=== PATIENT | female | born 1955 | race Caucasian/White ===

== ENCOUNTER 2021-11-18 08:53 | Outpatient (REF) | payer OTHER, SELFPAY | END 2021-11-18 08:54 | disposition home or self-care (01) | LOC: HO.BBR 08:53 | PROVIDERS: Visit Provider Student in an Organized Health Care Education/Training Program | DX: Z13.89 Encounter for screening for other disorder (principal) ==

== ENCOUNTER 2021-11-21 11:08 | Outpatient (REF) | payer OTHER, SELFPAY | END 2021-11-21 11:09 | disposition home or self-care (01) | LOC: HO.BBR 11:08 | PROVIDERS: Visit Provider Student in an Organized Health Care Education/Training Program | DX: D45 Polycythemia vera (principal) | CPT/HCPCS: 85018; 99195 ==

== ENCOUNTER 2021-11-24 10:08 | Outpatient (REF) | payer OTHER, SELFPAY | END 2021-11-24 10:09 | disposition home or self-care (01) | LOC: HO.BBR 10:08 | PROVIDERS: Visit Provider Student in an Organized Health Care Education/Training Program | DX: Z13.89 Encounter for screening for other disorder (principal) ==

== ENCOUNTER 2021-11-28 09:59 | Outpatient (REF) | payer OTHER, SELFPAY ==
[2021-11-28 10:21] LABS: Hematocrit 48.8 % (37.0-47.0); Hemoglobin 16.1 g/dl (12.0-16.0)
== END 2021-11-28 10:00 | disposition home or self-care (01) ==
LOC: HO.BBR 09:59
PROVIDERS: Visit Provider Student in an Organized Health Care Education/Training Program
DX: D45 Polycythemia vera (principal)
CPT/HCPCS: 36415; 85014; 85018; 99195

== ENCOUNTER 2021-12-01 11:04 | Outpatient (REF) | payer OTHER, SELFPAY ==
[2021-12-01 11:26] LABS: Basophils Absolute Auto 0.1 X10*3/uL (0.0-0.2); Basophils Percent Auto 0.8 % (0-2); Eosinophils Absolute Auto 0.3 X10*3/uL (0.0-0.4); Eosinophils Percent Auto 3.5 % (0-4); Hematocrit 44.5 % (37.0-47.0); Hemoglobin 14.3 g/dl (12.0-16.0); Imm Gran Abs Auto 0.02 X10*3/uL (0.00-0.03); Imm Gran Pct Auto 0.3 % (0.0-0.4); Lymphocytes Absolute Auto 1.4 X10*3/uL (1.2-4.9); Lymphocytes Percent Auto 18.6 % (20-40); MANUAL DIFF FLAG SCAN; Mean Corpuscular HGB Conc 32.1 g/dl (31.0-35.0); Mean Corpuscular Hemoglobin 27.2 pg (27.0-33.0); Mean Corpuscular Volume 84.8 fL (80.0-98.0); Mean Platelet Volume 10.2 fL (9.4-12.3); Monocytes Absolute Auto 0.2 X10*3/uL (0.1-1.2); Monocytes Percent Auto 2.6 % (2-11); Neutrophils Absolute Auto 5.5 x10*3/uL (2.0-8.3); Neutrophils Percent Auto 74.2 % (45-73); Platelet Count 776 X10*3/uL (160-400); Red Blood Count 5.25 X10*6/uL (4.20-5.50); Red Cell Distribution Width 16.7 % (11.0-16.0); SCAN SMEAR FLAG 1; White Blood Count 7.4 X10*3/uL (4.8-10.8)
[2021-12-01 11:49] LABS: SLIDE REVIEW VERIFIED
== END 2021-12-01 11:05 | disposition home or self-care (01) ==
LOC: HO.BBR 11:04
PROVIDERS: Visit Provider Student in an Organized Health Care Education/Training Program
DX: D45 Polycythemia vera (principal)
CPT/HCPCS: 36415; 85014; 85018; 85025; 99195

== ENCOUNTER 2021-12-12 11:08 | Outpatient (REF) | payer OTHER, SELFPAY | END 2021-12-12 11:09 | disposition home or self-care (01) | LOC: HO.BBR 11:08 | PROVIDERS: Visit Provider Student in an Organized Health Care Education/Training Program | DX: D45 Polycythemia vera (principal) | CPT/HCPCS: 85014 ==

== ENCOUNTER 2021-12-15 11:06 | Outpatient (REF) | payer OTHER, SELFPAY | END 2021-12-15 11:07 | disposition home or self-care (01) | LOC: HO.BBR 11:06 | PROVIDERS: Visit Provider Student in an Organized Health Care Education/Training Program | DX: D45 Polycythemia vera (principal) | CPT/HCPCS: 85014; 85018; 99195 ==

== ENCOUNTER 2021-12-19 11:05 | Outpatient (REF) | payer OTHER, SELFPAY | END 2021-12-19 11:06 | disposition home or self-care (01) | LOC: HO.BBR 11:05 | PROVIDERS: Visit Provider Student in an Organized Health Care Education/Training Program | DX: D45 Polycythemia vera (principal) | CPT/HCPCS: 85014; 85018; 99195 ==

== ENCOUNTER 2022-01-06 11:21 | Outpatient (REF) | payer OTHER, SELFPAY | END 2022-01-06 11:22 | disposition home or self-care (01) | LOC: HO.BBR 11:21 | PROVIDERS: Visit Provider Student in an Organized Health Care Education/Training Program | DX: D45 Polycythemia vera (principal) | CPT/HCPCS: 85014; 85018; 99195 ==